=== PATIENT | female | born 2000 | race Caucasian/White ===

== ENCOUNTER 2023-03-20 12:27 | Emergency (ER) | payer OTHER, MEDICAID, SELFPAY ==
--- NOTE | ~2023-03-20 | US_ITS ---
EXAMINATION: US PELVIS CLINICAL INFORMATION: Fever. History of recent termination. COMPARISON: None available. TECHNIQUE: Ultrasound of the pelvis is performed using both transabdominal and transvaginal transducers along with Doppler. Transvaginal imaging is performed due to inadequate visualization transabdominally. FINDINGS: The uterus is anteverted and measures 9.3 x 7.9 x 9.9 cm. The endometrium is markedly thickened measuring 6 to 8 cm. The endometrium is very heterogeneous appearing with hypo and hyperechoic and cystic areas. This appears avascular. No focal uterine lesion. Cervix is unremarkable. The right ovary is normal and measures 3.6 x 1.4 x 2 cm. The left ovary is normal and measures 3 x 1.4 x 1.7 cm. There is no fluid in the pelvis. US/US pelvic and transvaginal IMPRESSION: Very thickened heterogeneous endometrium measuring measuring up to 6 to 8 cm. This does not appear vascular and endometritis/infection and blood clot is favored over retained products of conception. Findings will be communicated by the [place] work flow tip bander
[2023-03-20 13:05] VITALS: BP 128/84; PULSE 106; RESP 17; TEMP 36.4; O2SAT 99; BMI 22.4
--- NOTE | 2023-03-20 13:08 | ED.GENADULT ---
HPI - General Adult General Chief complaint: General Medical Stated complaint: fever chills had procedure March 17 Source: patient and family (Mother) Mode of arrival: ambulatory History of Present Illness HPI narrative: 22yo old female who [facility] and then yesterday began developing lower pelvic cramping with vaginal bleeding and passage of clots. Patient reports fever of 102.4 at home but is noted to be 99.4 degrees here. Related Data Allergies Allergy/AdvReac Type Severity Reaction Status Date / Time No Known Allergies Allergy Unverified 07/02/20 19:29 [No Known Allergies*] Review of Systems Review of Systems: Pertinent positives and negatives as stated in HPI FOR[facility]LY [facility] Past Medical History Source: nursing notes reviewed Social History Social History Advance Directives: No Advance Directives Information Provided: No Physical Exam ED Vital Signs: Vital Signs - 24 hr 03/20/23 13:05 03/20/23 16:36 Temperature 97.5 F 99.4 F Pulse Rate 106 H 84 Respiratory Rate 17 18 Blood Pressure 128/84 140/88 H Pulse Oximetry 99 98 Oxygen Delivery Method Room Air Room Air BMI result Body Mass Index 22.4 VITAL SIGNS: Reviewed. GENERAL: Well developed, well nourished, in no acute distress. HEAD: Normocephalic/atraumatic EYES: PERRLA, EOMI EARS: Ext canals without abnormality LUNGS: Normal breath sounds. No adventitious sounds or accessory muscle use. SpO2<98> CARDIOVASCULAR: Regular rate and rhythm without noted murmurs ABDOMEN: Soft, non-tender, non-distended with bowel sounds. PELVIC: Dark blood noted in fornix MUSCULOSKELETAL: No tenderness, deformities, or effusions noted on gross inspection. EXTREMITIES: No cyanosis, clubbing or edema. SKIN: Inspection of the skin reveals no rashes NEUROLOGIC: Alert and oriented x 4. Strength and sensation to light touch were grossly intact x 4. Course Course Course Narrative: Patient complains of fever body aches feeling lightheaded and dizzy starting yesterday, this was 48 hours after a surgical termination of She has had mild crampy abdominal pain coming and going, she has had spotting since the procedure no heavy bleeding, no vomiting, tolerates p.o., no URI symptoms Pulse checked standing and sitting sitting it was 100 standing a went up to about 115 Abdomen was nontender Labs ordered This is rapid medical exam pending full evaluation, exam and dispo in the department Medications Administered Discontinued Medications Generic Name Dose Route Start Last Admin Trade Name Sally PRN Reason Stop Dose Admin Acetaminophen 975 mg 03/20/23 17:20 03/20/23 18:07 Acetaminophen 325 Mg Tablet PO 03/20/23 17:21 975 mg ONCE ONE Administration Sodium Chloride 1,000 mls @ 999 mls/hr 03/20/23 17:45 03/20/23 18:05 Ns IV 03/20/23 18:45 999 mls/hr .Q1H1M JASMYN Administration Sodium Chloride 1,000 mls @ 999 mls/hr 03/20/23 19:00 03/20/23 19:38 Ns IV 03/20/23 20:00 999 mls/hr .Q1H1M JASMYN Administration Ampicillin Sodium 2 gm/ Sodium 100 mls @ 100 mls/hr 03/20/23 18:53 03/20/23 19:34 Chloride IV 03/20/23 19:52 100 mls/hr ONCE ONE Administration Ketorolac Tromethamine 15 mg 03/20/23 17:40 03/20/23 18:08 Ketorolac Tromethamine 30 Mg/Ml Vial IVPUSH 03/20/23 17:41 15 mg ONCE ONE Administration Medical Decision Making Medical Decision Making [facility] Narrative: 1719: Initiate sepsis protocol for suspected infection, febrile to 104 at home, bloody discharge after surgical . Hemodynamically stable. 1738: A contacted on-call OBGYN, Dr. Hendrickson. Very thickened heterogeneous endometrium measuring measuring up to 6 to 8 cm. This does not appear vascular and endometritis/infection and blood clot is favored over retained products of conception. I have reviewed the lab work which is negative for leukocytosis and patient has not been febrile here but continues to have dark blood output and complains of chills and lightheadedness. 1853: Dr. Madhavi Alvarado recommendations are that this is a septic and patient will require transfer outside of [facility], but prior to this will need ampicillin 2 g Q 4, gentamicin 5 mg/kg/Q24h, clindamycin 900 mg q.8 hours 1954: I discussed case with Dr. Paige who accepts admission to [facility] Differential Diagnosis Please see the discussion above Consult Healthcare Provider Management of the patient was discussed with: Cage/Vault Supervisor See the discussion above Lab Data Please see the discussion above 03/20/23 13:23 03/20/23 13: Labs: Lab Results 03/20/23 03/20/23 03/20/23 Range/Units 13:23 13: 13:23 WBC 5.0 (4.8-10.8) X10*3/uL RBC 3.96 L (4.20-5.50) X10*6/uL Hgb 11.3 L (12.0-16.0) g/dl Hct 33.4 L (37.0-47.0) % MCV 84.3 (80.0-98.0) fL MCH 28.5 (27.0-33.0) pg MCHC 33.8 (31.0-35.0) g/dl RDW 13.2 (11.0-16.0) % Plt Count 180 (160-400) X10*3/uL MPV 10.5 (9.4-12.3) fL Immature Gran % (Auto) 0.2 (0.0-0.4) % Neut % (Auto) 64.1 (45-73) % Lymph % (Auto) 24.5 (20-40) % Hall % (Auto) 10.0 (2-11) % Eos % (Auto) 0.6 (0-4) % Baso % (Auto) 0.6 (0-2) % Lymph # (Auto) 1.2 (1.2-4.9) X10*3/uL Hall # (Auto) 0.5 (0.1-1.2) X10*3/uL Eos # (Auto) 0.0 (0.0-0.4) X10*3/uL Baso # (Auto) 0.0 (0.0-0.2) X10*3/uL Abs Immat Gran (auto) 0.01 (0.00-0.03) X10*3/uL Absolute Neuts (auto) 3.2 (2.0-8.3) x10*3/uL Absolute Nucleated RBC 0.000 (0.0-0.012) X10*3/uL Nucleated RBC % (auto) 0.0 (0.0-0.2) /100WBC Sodium 141 (135-145) mmol/L Potassium 4.2 (3.3-5.1) mmol/L Chloride 109 H (96-108) mmol/L Carbon Dioxide 24 (22-29) mmol/L Anion Gap 12 (12-20) BUN 8 L (9-16) mg/dL Creatinine 0.62 (0.5-1.4) mg/dL Estim Creat Clear Calc 130.2 Estimated GFR > 60 Random Glucose 92 (60-115) mg/dL Lactic Acid 0.7 (0.5-2.0) mmol/L Calcium 9.6 (8.4-10.2) mg/dL Beta HCG, Quant 8228 mIU/mL Urine Color Urine Appearance Urine pH (5.0-9.0) Ur Specific Loring (1.005-1.025) Urine Protein (Neg-Trace) mg/dL Urine Glucose (UA) (Negative) mg/dL Urine Ketones (Negative) mg/dL Urine Blood (Negative) Urine Nitrite (Negative) Ur Leukocyte Esterase (Negative) Urine RBC (0-2) /HPF Urine WBC (0-5) /HPF Ur Squamous Epith Cells (0-2) /HPF Urine Bacteria (None Seen) Hyaline Casts (0-2) /LPF 03/20/23 Range/Units 16:29 WBC (4.8-10.8) X10*3/uL RBC (4.20-5.50) X10*6/uL Hgb (12.0-16.0) g/dl Hct (37.0-47.0) % MCV (80.0-98.0) fL MCH (27.0-33.0) pg MCHC (31.0-35.0) g/dl RDW (11.0-16.0) % Plt Count (160-400) X10*3/uL MPV (9.4-12.3) fL Immature Gran % (Auto) (0.0-0.4) % Neut % (Auto) (45-73) % Lymph % (Auto) (20-40) % Hall % (Auto) (2-11) % Eos % (Auto) (0-4) % Baso % (Auto) (0-2) % Lymph # (Auto) (1.2-4.9) X10*3/uL Hall # (Auto) (0.1-1.2) X10*3/uL Eos # (Auto) (0.0-0.4) X10*3/uL Baso # (Auto) (0.0-0.2) X10*3/uL Abs Immat Gran (auto) (0.00-0.03) X10*3/uL Absolute Neuts (auto) (2.0-8.3) x10*3/uL Absolute Nucleated RBC (0.0-0.012) X10*3/uL Nucleated RBC % (auto) (0.0-0.2) /100WBC Sodium (135-145) mmol/L Potassium (3.3-5.1) mmol/L Chloride (96-108) mmol/L Carbon Dioxide (22-29) mmol/L Anion Gap (12-20) BUN (9-16) mg/dL Creatinine (0.5-1.4) mg/dL Estim Creat Clear Calc Estimated GFR Random Glucose (60-115) mg/dL Lactic Acid (0.5-2.0) mmol/L Calcium (8.4-10.2) mg/dL Beta HCG, Quant mIU/mL Urine Color Yellow Urine Appearance Clear Urine pH 5.5 (5.0-9.0) Ur Specific Loring 1.010 (1.005-1.025) Urine Protein Negative (Neg-Trace) mg/dL Urine Glucose (UA) Negative (Negative) mg/dL Urine Ketones Negative (Negative) mg/dL Urine Blood Moderate (2+) H (Negative) Urine Nitrite Negative (Negative) Ur Leukocyte Esterase Negative (Negative) Urine RBC 0-2 (0-2) /HPF Urine WBC 0-5 (0-5) /HPF Ur Squamous Epith Cells 0-2 (0-2) /HPF Urine Bacteria None Seen (None Seen) Hyaline Casts 0-2 (0-2) /LPF Radiology Impression Radiologist Impression: My interpretation is in agreement with radiology's impression of the imaging studies. Discharge Plan Discharge Clinical Impression: Legal with septicemia Patient Disposition: Xfer [facility] Transfer Details: Surgical intervention with high risk of complication rate requiring additional consultants
[2023-03-20 13:29] LABS: MANUAL DIFF FLAG NO
[2023-03-20 13:31] LABS: Basophils Percent Auto 0.6 % (0-2); Eosinophils Percent Auto 0.6 % (0-4); Hematocrit 33.4 % (37.0-47.0); Hemoglobin 11.3 g/dl (12.0-16.0); Imm Gran Abs Auto 0.01 X10*3/uL (0.00-0.03); Imm Gran Pct Auto 0.2 % (0.0-0.4); Lymphocytes Absolute Auto 1.2 X10*3/uL (1.2-4.9); Lymphocytes Percent Auto 24.5 % (20-40); Mean Corpuscular HGB Conc 33.8 g/dl (31.0-35.0); Mean Corpuscular Hemoglobin 28.5 pg (27.0-33.0); Mean Corpuscular Volume 84.3 fL (80.0-98.0); Mean Platelet Volume 10.5 fL (9.4-12.3); Monocytes Absolute Auto 0.5 X10*3/uL (0.1-1.2); Neutrophils Absolute Auto 3.2 x10*3/uL (2.0-8.3); Neutrophils Percent Auto 64.1 % (45-73); Platelet Count 180 X10*3/uL (160-400); Red Blood Count 3.96 X10*6/uL (4.20-5.50); Red Cell Distribution Width 13.2 % (11.0-16.0)
[2023-03-20 13:45] LABS: Lactic Acid 0.7 mmol/L (0.5-2.0)
[2023-03-20 13:48] LABS: Anion Gap 12 (12-20); Blood Urea Nitrogen 8 mg/dL (9-16); Calcium 9.6 mg/dL (8.4-10.2); Carbon Dioxide 24 mmol/L (22-29); Chloride 109 mmol/L (96-108); Creatinine Clr Calc Pharmacy 130.2; Estimated Glomerular Filt Rate > 60; Glucose Random 92 mg/dL (60-115); Potassium 4.2 mmol/L (3.3-5.1); Sodium 141 mmol/L (135-145)
[2023-03-20 16:36] VITALS: BP 140/88; PULSE 84; RESP 18; TEMP 37.4; O2SAT 98
--- NOTE | 2023-03-20 16:36 | MHC.EDTECH ---
PT 2ND SETS OF BLOOD CULTURE DRAWN ,URINE SAMPLE COLLECTED AND SENT TO LAB ,VITALS SIGN RE CHECK .
[2023-03-20 16:41] LABS: Appearance Urine Clear; Color Urine Yellow; Glucose Urine UA Negative (Negative); Leukocyte Esterase Urine Negative (Negative); Nitrite Urine Negative (Negative); PH 5.5 (5.0-9.0); UMIC TRIGGER UACC YES; Urine Blood Moderate (2+) (Negative); Urine Ketones Negative (Negative); Urine Protein Negative (Neg-Trace)
[2023-03-20 17:04] LABS: Bacteria Urine None Seen (None Seen); Hyaline Casts Urine 0-2 /LPF (0-2); RBC Urine 0-2 /HPF (0-2); Squamous Epithelial Cell Urine 0-2 /HPF (0-2); WBC Urine 0-5 /HPF (0-5)
--- NOTE | 2023-03-20 17:45 | P.CONOB_ITS ---
TEST AUTOMATION ARCHITECT - CN: HPI Data of Consult Consult date: 03/20/23 Primary Care Provider: Unknown Physician Consult Narrative Narrative: I was consulted on Jeanette Holbrook who is a 22 year old female para 1011 day 3 status post suction D&C for at 12 weeks and 4 [facility] having fever of 102.4 yesterday with pelvic pain and vaginal bleeding and passage of clots.? No other associated symptoms. HCG in the emergency room is a 8228. cc:: CC: RECRUITER COORDINATOR - Review of Systems Review of Systems ROS Unobtainable: All systems reviewed & are unremarkable except as noted in HPI and below Cardiovascular: Denies Palpatations, Loss of consciousness or Chest pain Respiratory: Denies Cough, Wheezing or Shortness of breath Musculoskeletal: Denies Low back pain Gastrointestinal: Denies Heartburn, Constipation, Diarrhea, Nausea or Vomiting Genitourinary: Denies Pain with urination, Burning with urination or Urinary frequency Neurological: Denies Migranes Psychological: Denies Depression OB PMFSH Social History Social History Advance Directives: No Advance Directives Information Provided: No Meds Allergies Allergy/AdvReac Type Severity Reaction Status Date / Time No Known Allergies Allergy Unverified 07/02/20 19:29 [No Known Allergies*] Active Medications: Current Medications Sodium Chloride (Ns) 1,000 mls @ 999 mls/hr IV .Q1H1M JASMYN Stop: 03/20/23 18:45 TEST AUTOMATION ARCHITECT Physical Exam Vitals Vital signs: Temp Pulse Resp BP Pulse Ox O2 Del Method 99.4 F 84 18 140/88 H 98 Room Air 03/20/23 16:36 03/20/23 16:36 03/20/23 16:36 03/20/23 16:36 03/20/23 16:36 03/20/23 16:36 BMI result Body Mass Index 22.4 Constitutional General Appearance: Healthy appearing, Well-nourished and Well-developed Psychiatric Mood and Affect: active and alert, normal mood and normal affect Skin Appearance: No rashes and No lesions Lungs Respiratory Effort: No intercostal retractions Auscultation: Clear to auscultation Cardiovascular Auscultation: RRR Abdomen Auscultation/Inspection/Palpation: Normal bowel sounds, Soft, Non-distended and Tenderness (Lower abdominal tenderness) Female Genitalia (Pelvic) Vulva: No lesions Vagina: Nontender Cervix: Cervical motion tenderness Uterus: Enlarged and Tender Adnexa/Parametria: Adnexal Tenderness: Bilateral and Parametrial Tenderness: Bilateral TEST AUTOMATION ARCHITECT - Results Labs 03/20/23 13:23 03/20/23 13:23 Labs: Short CBC 03/20/23 Range/Units 13:23 WBC 5.0 (4.8-10.8) X10*3/uL Hgb 11.3 L (12.0-16.0) g/dl Hct 33.4 L (37.0-47.0) % Plt Count 180 (160-400) X10*3/uL BMP 03/20/23 13:23 Sodium 141 Potassium 4.2 Chloride 109 H Carbon Dioxide 24 BUN 8 L Creatinine 0.62 Calcium 9.6 Urine 03/20/23 Range/Units 16:29 Urine Color Yellow Urine Appearance Clear Urine pH 5.5 (5.0-9.0) Ur Specific Rickman 1.010 (1.005-1.025) Urine Protein Negative (Neg-Trace) mg/dL Urine Glucose (UA) Negative (Negative) mg/dL Imaging US - abdomen: Radiologist's impression: ITS Impressions Pelvic/Transvag US 03/20/23 14:30 IMPRESSION: Very thickened heterogeneous endometrium measuring measuring up to 6 to 8 cm. This does not appear vascular and endometritis/infection and blood clot is favored over retained products of conception. Findings will be communicated by the [place] work flow want ad supervisor Assessment and Plan (1) history: Status: Acute Plan gc/ct, bv panel & trich collected. Given the signs and symptoms of pelvic infection including uterine pain and tenderness and vaginal bleeding status post surgical below 20 weeks, the patient has the diagnosis of clinical septic , the patient is hemodynamically stable with no criteria for the systemic inflammatory response syndrome (no evidence of tachycardia, no elevated respiratory rate, no leukocytosis). I recommend to start on ampicillin 2 g IV q.4, clindamycin 900 mg IV q.8 and gentamicin 5 milligrams/kilogram every 24 hours immediately , IV hydration, to be followed by suction D&C under ultrasound guidance within 4-6 hours of initiation of antibiotics . Discussed with the patient the risk of suction D&C including but not limited to uterine perforation, massive hemorrhage (treated with activation of massive transfusion protocol, oxytocics, uterine artery embolization with Interventional Radiology, not available at [facility] after hours, or potential hysterectomy); after further discussion, the patient requested to be transferred to a tertiary care center where interventional radiology is available in case massive hemorrhage occurs in effort to avoid potentially a hysterectomy. Therefore, I recommend transfer to a tertiary care center per patient request. All questions answered, the patient verbalized understanding Discussed the case with Dr. Alonso. Time Spent With Patient Time: Total time managing care of this patient today ____ minutes.
[2023-03-20] MEDS: 0.9 % Sodium Chloride 1,000 ML 999 ML IV ×2 (18:05→19:38)
[2023-03-20] MEDS: Acetaminophen 325 MG TABLET 975 MG PO (18:07)
[2023-03-20] MEDS: Ketorolac Tromethamine 30 MG/ML VIAL 15 MG IVPUSH (18:08)
[2023-03-20 18:15] LABS: HCG Quantitative 8228 mIU/mL
[2023-03-20] MEDS: Ampicillin Sodium 2 GM in 0.9 % Sodium Chloride 100 ML IV (19:34)
[2023-03-20] MEDS: Clindamycin Phosphate/D5W 900 MG/50 ML PIGGYBACK 50 MG IV (20:15)
--- NOTE | 2023-03-20 20:34 | MHC.EDTECH ---
Patient was accepted to [facility] to W2, accepting Provider is Dr. Paige.
[2023-03-20 20:38] VITALS: BP 128/90; PULSE 91; RESP 18; TEMP 36.6
--- NOTE | 2023-03-20 21:00 | PC.NURSE ---
late entry- per dr fishman run each antibiotic 1 at a time to observe for potential reaction. pt calm and cooperative. due to pt transfer status pt transferred prior to initiating third iv antibiotic. this rn made dr fishman aware of this dr fishman cancelled med and instructed this rn to inform accepting rn that pt received only first two antibiotics. this rn called and gave rn to rn report to [facility]. pt transported via ems
[2023-03-21 05:07] LABS: CT PCR NOT DETECTED (Not Detect.); NG PCR NOT DETECTED (Not Detect.)
[2023-03-21 08:55] LABS: BV Int Neg Control Negative (Negative); BV Int Pos Control Positive (Positive)
== END 2023-03-21 01:34 | disposition short-term general hospital (02) ==
PROVIDERS: Physician Assistant Medical; Emergency Provider Student in an Organized Health Care Education/Training Program
DX: O03.87 Sepsis following complete or unspecified spontaneous abortion (principal); R10.2 Pelvic and perineal pain; R50.9 Fever, unspecified
CPT/HCPCS: 0353U; 36415; 76830; 76856; 80048; 81001; 83605; 84702; 85025; 86850; 86900; 86901; 87040; 87480; 87510; 87660; 96374; 96375; 99285; J0290; J1885